=== PATIENT | male | born 1950 | race Caucasian/White ===

== ENCOUNTER 2022-03-15 07:00 | Emergency (ER) | payer MEDICARE, OTHER ==
[~2022-03-15] VITALS: Ht 175.3 cm; Wt 93.2 kg
--- NOTE | 2022-03-15 07:41 | PHYS DOC ---
Past History Past Surgical History: Other Additional Past Surgical Histo: cardiac stents Alcohol Use: None General Adult EDM: Chief Complaint: MECHANICAL FALL HPI: HPI: 72-year-old male presents with left lower rib pain. The patient was climbing through a window yesterday when he fell onto the floor. He mostly landed on his left side with his left arm tucked against his lower ribs. It knocked the wind out of him at that time. He has been doing fine except that his left lower ribs are very tender. He is concerned about fracture so he came in for evaluation. He denies significant shortness of breath. He has no other complaints this time. Review of Systems: Review of Systems: Constitutional: Denies fever or chills Eyes: Denies change in visual acuity HENT: Denies nasal congestion or sore throat Respiratory: Denies cough or shortness of breath Cardiovascular: Left lower chest wall pain GI: Denies abdominal pain, nausea, vomiting, bloody stools or diarrhea : Denies dysuria Musculoskeletal: Denies back pain or joint pain Integument: Denies rash Neurologic: Denies headache, focal weakness or sensory changes Endocrine: Denies polyuria or polydipsia Lymphatic: Denies swollen glands Psychiatric: Denies depression or anxiety Current Medications: Current Meds: Current Medications Medications (Trade) Dose Ordered Sig/Angelica Start Time Stop Time Status Last Admin Dose Admin Morphine Sulfate (Morphine 4mg Syringe) 4 mg 1X ONCE 03/15/22 07:45 03/15/22 07:46 UNV Allergies: Allergies: Allergies Coded Allergies Type Severity Reaction Last Updated Verified No Known Drug Allergies 03/15/22 No Physical Exam: PE: Constitutional: Well developed, well nourished, no acute distress, non-toxic appearance. [] HENT: Normocephalic, atraumatic, bilateral external ears normal, oropharynx moist, no oral exudates, nose normal. [] Eyes: PERRLA, EOMI, conjunctiva normal, no discharge. [] Neck: Normal range of motion, no tenderness, supple, no stridor. [] Cardiovascular: Heart rate regular rhythm, no murmur [] Lungs & Thorax: Bilateral breath sounds clear to auscultation Tenderness left lower ribs, no ecchymosis [] Abdomen: Bowel sounds normal, soft, no tenderness, no masses, no pulsatile masses. [] Skin: Warm, dry, no erythema, no rash. [] Back: No tenderness, no CVA tenderness. [] Extremities: No tenderness, no cyanosis, no clubbing, ROM intact, no edema. [] Neurologic: Alert and oriented X 3, normal motor function, normal sensory function, no focal deficits noted. [] Psychologic: Affect normal, judgement normal, mood normal. [] Current Patient Data: Vital Signs: Vital Signs Date Time Temp Pulse Resp B/P (MAP) Pulse Ox O2 Delivery O2 Flow Rate FiO2 03/15/22 07:17 98.4 71 20 188/78 (114) 96 Room Air EKG: EKG: [] Radiology/Procedures: Radiology/Procedures: [] Impressions: XR RIBS MIN 3 VIEWS LT W/PA CHEST History: Reason: fall / Spl. Instructions: / History: . Pain Technique: PA view the chest and additional views of the left ribs. Comparison: None. Findings: Mild ill-defined bibasilar opacities. No pleural effusion. No pneumothorax. Normal heart size. Acute left eighth anterolateral rib fracture. Impression: 1. Acute left anterior lateral eighth rib fracture. 2. Mild bibasilar ill-defined opacities, likely atelectasis. Electronically signed by: Kunal Brito DO (03/15/2022 8:00 AM) [id number] DICTATED AND SIGNED BY: KUNAL BRITO DO DATE: 03/15/22 0758 CC: MITZY SANTILLAN DO; SANTOS ROGEL MD ~ Heart Score: C/O Chest Pain: N/A Risk Factors: Risk Factors: DM, Current or recent (<one month) smoker, HTN, HLP, family history of CAD, obesity. Risk Scores: Score 0 - 3: 2.5% MACE over next 6 weeks - Discharge Home Score 4 - 6: 20.3% MACE over next 6 weeks - Admit for Clinical Observation Score 7 - 10: 72.7% MACE over next 6 weeks - Early Invasive Strategies Course & Med Decision Making: Course & Med Decision Making Pertinent Labs and Imaging studies reviewed. (See chart for details) The patient does have an acute fracture of the eighth rib on the left. I have discussed with him the importance of taking deep breaths and I will give him [place] for pain control. He will follow-up with his primary care physician for further pain medication. He is stable for discharge at this time. [] Spenser Disclaimer: Dragon Disclaimer: This electronic medical record was generated, in whole or in part, using a voice recognition dictation system. Departure Departure: Impression: Primary Impression: Left rib fracture Disposition: HOME / SELF CARE / HOMELESS Condition: STABLE Referrals: SANTOS ROGEL MD (PCP) Patient Instructions: Rib Fracture, [id number] Scripts Hydrocodone/Acetaminophen (Hydrocodone-Acetamin 5-325 mg) 1 Each Tablet 1 EACH PO Q4-6HRS PRN for PAIN, #20 TAB Prov: MITZY SANTILLAN DO 03/15/22 MITZY SANTILLAN DO March 15, 2022 07:41
[2022-03-15] MEDS ORDERED: MORPHINE SULFATE 4 MG/ML DISP.SYRIN. IM ONE (07:45)
--- NOTE | 2022-03-15 08:03 | RAD ---
XR RIBS MIN 3 VIEWS LT W/PA CHEST History: Reason: fall / Spl. Instructions: / History: . Pain Technique: PA view the chest and additional views of the left ribs. Comparison: None. Findings: Mild ill-defined bibasilar opacities. No pleural effusion. No pneumothorax. Normal heart size. Acute left eighth anterolateral rib fracture. Impression: 1. Acute left anterior lateral eighth rib fracture. 2. Mild bibasilar ill-defined opacities, likely atelectasis. Electronically signed by: Kunal Murdock DO (03/15/2022 8:00 AM) [id number]
[2022-03-15] MEDS ORDERED: HYDR-2759 PO (08:42)
[2022-03-15 08:50] VITALS: BP 161/77
== END 2022-03-15 08:57 | disposition home or self-care (01) ==
LOC: ER 07:00
DX: S22.32XA Fracture of one rib, left side, initial encounter for closed fracture (principal); W18.39XA Other fall on same level, initial encounter; Y93.89 Activity, other specified; Y92.89 Other specified places as the place of occurrence of the external cause; Y99.8 Other external cause status
CPT/HCPCS: 71101; 96372; 99283; J2270